=== PATIENT | male | born 1965 | race Two or more races ===

== ENCOUNTER 2023-05-12 10:10 | Emergency (ER) | payer MEDICAID, OTHER ==
[~2023-05-12] VITALS: Ht 165.1 cm; Wt 65.3 kg
[2023-05-12 10:20] VITALS: BP 122/77
[2023-05-12] MEDS ORDERED: PRED20TA2 PO (11:42)
== END 2023-05-12 11:53 | disposition home or self-care (01) ==
LOC: ER 10:10
DX: M50.10 Cervical disc disorder with radiculopathy, unspecified cervical region (principal); I10 Essential (primary) hypertension
CPT/HCPCS: 72040